=== PATIENT | male | born 1945 | race Caucasian/White ===

== ENCOUNTER 2017-02-04 17:51 | Emergency (ER) | payer MEDICARE ==
[~2017-02-04] VITALS: Ht 175.3 cm; Wt 81.2 kg
== END 2017-02-04 20:38 | disposition home or self-care (01) ==
LOC: CFTX 17:51 → CED 17:51 → CFTX 20:34
DX: S01.511A Laceration without foreign body of lip, initial encounter (principal); I10 Essential (primary) hypertension; E11.9 Type 2 diabetes mellitus without complications; Z79.4 Long term (current) use of insulin; W22.8XXA Striking against or struck by other objects, initial encounter; Y92.410 Unspecified street and highway as the place of occurrence of the external cause
CPT/HCPCS: 12011; 99283